=== PATIENT | male | born 1965 | race Caucasian/White ===

== ENCOUNTER 2021-08-18 06:09 | Emergency (ER) | payer OTHER ==
[~2021-08-18] VITALS: Ht 180.3 cm; Wt 77.0 kg
[~2021-08-18 06:09] MED LIST: AMOXICILLIN500 MG OR; LORTAB5 OR; NO CURRENT MEDS; NO HOME MEDS; PENICILLN VK500 M1 OR
[2021-08-18 06:26] VITALS: BP 194/94
[2021-08-18 06:31] VITALS: BP 159/99
[2021-08-18] MEDS ORDERED: AMOXICILLIN500 MG PO (06:35)
[2021-08-18 06:36] VITALS: BP 159/99
[2021-08-19] MEDS ORDERED: CLEOCIN300 MG PO (14:12)
== END 2021-08-18 06:41 | disposition home or self-care (01) ==
LOC: ED 06:09
DX: K04.7 Periapical abscess without sinus (principal); K02.9 Dental caries, unspecified; F17.200 Nicotine dependence, unspecified, uncomplicated

== ENCOUNTER 2021-08-19 13:29 | Emergency (ER) | payer OTHER ==
[~2021-08-19] VITALS: Ht 180.3 cm; Wt 77.2 kg
[~2021-08-19 13:29] MED LIST changes: +AMOXICILLIN500 MG PO
[2021-08-19 14:01] VITALS: BP 149/102
[2021-08-19 14:09] VITALS: BP 142/101
[2021-08-19] MEDS ORDERED: CLEOCIN300 MG PO (14:12)
== END 2021-08-19 14:23 | disposition home or self-care (01) ==
LOC: ED 13:29
DX: K04.7 Periapical abscess without sinus (principal); F17.200 Nicotine dependence, unspecified, uncomplicated

== ENCOUNTER 2021-12-18 00:04 | Emergency (ER) | payer OTHER ==
[~2021-12-18] VITALS: Ht 180.3 cm; Wt 77.2 kg
[~2021-12-18 00:04] MED LIST changes: +CLEOCIN300 MG PO
[2021-12-18 00:54] VITALS: BP 195/99
[2021-12-18 00:55] VITALS: BP 169/93
[2021-12-18 01:00] VITALS: BP 162/104
[2021-12-18] MEDS ORDERED: AMOXICILLIN500 MG PO (01:05)
[2021-12-18 01:20] VITALS: BP 149/102
== END 2021-12-18 01:20 | disposition home or self-care (01) ==
LOC: ED 00:04
DX: K04.7 Periapical abscess without sinus (principal); K02.9 Dental caries, unspecified; F17.200 Nicotine dependence, unspecified, uncomplicated